=== PATIENT | male | born 1965 | race Caucasian/White ===

== ENCOUNTER 2018-05-09 23:56 | Emergency (ER) | payer BC ==
[2018-05-10 00:06] VITALS: BP 153/97
--- NOTE | 2018-05-10 00:32 | EDM.PDOC ---
ED HPI GENERAL MEDICAL PROBLEM - General Chief Complaint: Lower Extremity Injury/Pain Stated Complaint: LUMP ON LEG Time Seen by Provider: 05/10/18 00:11 Source of Information: Reports: Patient, RN Notes Reviewed - History of Present Illness INITIAL COMMENTS - FREE TEXT/NARRATIVE: 53-year-old male comes in with an area of swelling, discomfort medial aspect left mid thigh. He first noticed that this evening. There is an area of mild redness superficially of the skin. He states that the area of swelling is very mildly tender. Otherwise no discomfort at rest. He did fall a couple of weeks ago but that was backwards. He is not aware of any particular injury to this area. No distal leg discomfort. No chest pain or difficulty breathing. No history of blood clots. No recent surgeries. Left Leg Pain Score (Numeric/FACES): 4 - Related Data Allergies Allergy/AdvReac Type Severity Reaction Status Date / Time sutures Allergy Other Uncoded 05/10/18 00:03 Home Meds: Home Meds . [No Known Home Meds] 09/18/14 [History] Past Medical History - Past Surgical History HEENT Surgical History: Reports: Adenoidectomy, Tonsillectomy Musculoskeletal Surgical History: Reports: Arthroscopic Knee Social & Family History - Tobacco Use Smoking Status *Q: Current Every Day Smoker Years of Tobacco use: 34 Packs/Tins Daily: 1 Review of Systems - Review of Systems Review Of Systems: See Below Constitutional: Denies: Chills, Fever Mouth/Throat: Reports: No Symptoms Respiratory: Denies: Shortness of Breath, Pleuritic Chest Pain Cardiovascular: Denies: Chest Pain GI/Abdominal: Denies: Abdominal Pain, Nausea, Vomiting Musculoskeletal: Reports: Other (Area of swelling and mild discomfort left medial thigh) Skin: Reports: Other (No other areas of skin infection or inflammation) Neurological: Reports: No Symptoms ED EXAM, GENERAL - Physical Exam Exam: See Below General Appearance: Alert, No Apparent Distress Head: Atraumatic. No: Facial Swelling Neck: Supple Respiratory/Chest: No Respiratory Distress Extremities: Non-Tender (Lower leg completely nontender, posterior calf is not swollen warm erythematous or tender.), Other (Area of slight swelling left medial thigh very minimal localized tenderness). No: Joint Swelling Skin Exam: Other (Slight diffuse erythema left medial thigh, no palpable venous cords.) Course - Vital Signs Last Recorded V/S: Last Vital Signs Temp 97.7 F 05/10/18 00:03 Pulse 81 05/10/18 00:03 Resp 18 05/10/18 00:03 BP 153/97 H 05/10/18 00:03 Pulse Ox 97 05/10/18 00:03 - Re-Assessments/Exams Free Text/Narrative Re-Assessment/Exam: 05/10/18 01:03 Etiology of slight swelling and very mild erythematous skin discoloration not clear. This is most compatible mild superficial thrombophlebitis. There is an area of very mild deep or swelling palpable very minimally tender. Did be a pocket of deeper infection although etiology would be unclear. Have discussed warm compresses, anti-inflammatory medication with patient. Will also start him on doxycycline 100 mg twice a day for 1 week. Discharge instructions as documented. Departure - Departure Time of Disposition: 00:30 Disposition: Home, Self-Care 01 Condition: Fair Clinical Impression: Superficial phlebitis - Discharge Information Instructions: Phlebitis, [id number] Referrals: PCP,None [Primary Care Provider] - Forms: ED Department Discharge Additional Instructions: Warm compresses every 2-3 hours while awake for the next few days, Advil or ibuprofen 600 mg 3 times daily with food for inflammation, doxycycline 100 mg twice daily to cover for possible infection. Follow-up clinic and have this rechecked if not getting better over the next 3-4 days. Return to ED if symptoms worsening in any way as discussed.
== END 2018-05-10 00:36 | disposition home or self-care (01) ==
LOC: JD.ED 23:56
DX: I80.12 Phlebitis and thrombophlebitis of left femoral vein (principal); F17.210 Nicotine dependence, cigarettes, uncomplicated; Z91.048 Other nonmedicinal substance allergy status
CPT/HCPCS: 99282; 99283

== ENCOUNTER 2019-04-21 09:49 | Emergency (ER) | payer BC ==
[2019-04-21 09:58] VITALS: BP 151/102; PULSE 80
--- NOTE | 2019-04-21 11:09 | EDM.PDOC ---
ED HPI GENERAL MEDICAL PROBLEM - General Chief Complaint: Upper Extremity Injury/Pain Stated Complaint: R SHOULDER INJURY Time Seen by Provider: 04/21/19 11:02 Source of Information: Reports: Patient History Limitations: Reports: No Limitations - History of Present Illness INITIAL COMMENTS - FREE TEXT/NARRATIVE: 54-year-old male presents the ED with an acute injury to his right shoulder and neck and head yesterday while skiing at [facility]. He was not wearing a helmet and states he lost control and fell hard on his right shoulder. He did hit the side of his head hard and was slightly nauseated afterwards but subsequently feels fine. No blurred vision no nausea no headache and he has full range of motion of his cervical spine. Chief complaint is pain in the right shoulder. States that his ribs aren't that painful. Onset: Sudden Onset Date: 04/20/19 Onset Time: 14:00 Duration: Hour(s): Location: Reports: Head (Closed head injury from coming contact with this note) , Upper Extremity, Right (Right shoulder pain and swelling over the acromioclavicular joint area.) Quality: Reports: Ache ( and ice.), Throbbing Severity: Moderate Improves with: Reports: Rest Worsens with: Reports: Movement Context: Reports: Exercise (Skiing accident.). Denies: Activity (Attempts to move it forward site for flexion or abduction causes increased pain in the shoulder.) Associated Symptoms: Reports: No Other Symptoms Treatments PURCHASING SPECIALIST: Reports: Other (see below) (None.) Left Shoulder Pain Score (Numeric/FACES): 9 - Related Data Allergies Allergy/AdvReac Type Severity Reaction Status Date / Time sutures Allergy Other Uncoded 05/10/18 00:03 Home Meds: Home Meds ISOtretinoin [Myorisan] 40 mg PO WEEKLY 04/21/19 [History] Past Medical History HEENT History: Reports: None Cardiovascular History: Reports: None Respiratory History: Reports: None Gastrointestinal History: Reports: None Genitourinary History: Reports: None Musculoskeletal History: Reports: Other (See Below) (Toward his ACL in his left knee and LCL and repeat had a repaired but the ACL subsequently re-torn but he has not had it repaired.) Neurological History: Reports: None Psychiatric History: Reports: None Endocrine/Metabolic History: Reports: None Hematologic History: Reports: None Immunologic History: Reports: None Oncologic (Cancer) History: Reports: None Dermatologic History: Reports: None - Past Surgical History HEENT Surgical History: Reports: Adenoidectomy, Tonsillectomy Musculoskeletal Surgical History: Reports: Arthroscopic Knee Social & Family History - Tobacco Use Smoking Status *Q: Current Every Day Smoker Years of Tobacco use: 35 Packs/Tins Daily: 1 - Caffeine Use Caffeine Use: Reports: Coffee Caffeine Use Comment: lots - Recreational Drug Use Recreational Drug Use: No - Living Situation & Occupation Living situation: Reports: Occupation: Employed (Self-employed) Review of Systems - Review of Systems Review Of Systems: See Below Constitutional: Reports: No Symptoms Eyes: Reports: No Symptoms Ears: Reports: Other Nose: Reports: No Symptoms Mouth/Throat: Reports: No Symptoms Respiratory: Reports: No Symptoms Cardiovascular: Reports: No Symptoms GI/Abdominal: Reports: No Symptoms Genitourinary: Reports: No Symptoms Musculoskeletal: Reports: Shoulder Pain, Other. Denies: Neck Pain (Left knee pain at times.) Skin: Reports: No Symptoms (Early having right shoulder pain since fall yesterday.) Neurological: Reports: No Symptoms. Denies: Confusion, Dizziness, Headache Psychiatric: Reports: No Symptoms ED EXAM, GENERAL - Physical Exam Exam: See Below Exam Limited By: No Limitations General Appearance: Alert, WD/WN, No Apparent Distress, Other (Temperatures 36.6 heart rate is 80 and sinus respiratory is 20 with O2 sats of 96%. BP slightly elevated at 150 04/19/01 on initial presentation.) Eye Exam: Bilateral Eye: Normal Inspection Ears: Other (Right ear is a little reddened and swollen from coming in contact with the ice and snow but no skin tears are evident. More blunt trauma contusion to the ear pinna.) Throat/Mouth: Normal Inspection, Normal Lips, Normal Oropharynx Head: Atraumatic, Normocephalic Neck: Normal Inspection, Supple, Non-Tender, Full Range of Motion. No: Lymphadenopathy (L), Lymphadenopathy (R) Respiratory/Chest: No Respiratory Distress, Lungs Clear, Normal Breath Sounds, No Accessory Muscle Use, Chest Non-Tender, Other Cardiovascular: Normal Peripheral Pulses (No pain on from compression of lateral ribs.), Regular Rate, Rhythm, No Edema, No Gallop, No Murmur, No Rub Peripheral Pulses: 3+: Radial (L), Radial (R) GI/Abdominal: Normal Bowel Sounds, Soft, Non-Tender, No Organomegaly, No Abnormal Bruit, No Mass, Pelvis Stable Back Exam: Normal Inspection, Full Range of Motion, Other. No: CVA Tenderness ( L), CVA Tenderness (R) Extremities: Other (Paraspinal muscle spasm or rib head subluxation identified. Number the right shoulder shows swelling over the acromioclavicular joint and localized pain to this area as well. Is very limited ability to abduct more than about 15 and cannot forward flex.) Neurological: Alert, Oriented, CN II-XII Intact, Normal Cognition Psychiatric: Normal Affect, Normal Mood Skin Exam: Warm, Dry, Intact, Normal Color, No Rash Course - Vital Signs Last Recorded V/S: Last Vital Signs Temp 36.6 C 04/21/19 09:57 Pulse 80 04/21/19 09:57 Resp 20 04/21/19 09:57 BP 151/102 H 04/21/19 09:57 Pulse Ox 95 04/21/19 09:57 - Orders/Labs/Meds Orders: Active Orders 24 hr Category Date Time Status Shoulder Comp Rt [CR] Stat Exams 04/21/19 10:38 Taken Durable Medical Equipment for Discharge [DME for Oth 04/21/19 11:03 Ordered Discharge] [COMM] Stat - Radiology Interpretation Free Text/Narrative:: 54-year-old male presents the ED with acute injuries to his right shoulder and a minor closed head injury from a skiing accident yesterday in [place]. His range of motion of the cervical spine is full. He has no headache nausea vomiting at this time and no blurred vision. Feels his balance is intact. Chief complaint is pain in his right shoulder and there is swelling over the acromioclavicular joint. I suspect he is his shoulder. Plan x-rays of the shoulder to be done. - Re-Assessments/Exams Free Text/Narrative Re-Assessment/Exam: 04/21/19 11:05: X-rays confirm a second-degree separation of the right shoulder. With pulling down on his arms I could not exacerbate the disc placement. Patient be treated with sling and swath for the next 3 weeks. He prefers not to take any strong pain medication will use Motrin and Aleve as necessary. Use ice pack on the area one half hour out of every 4 hours today and then heat starting tomorrow. Advise follow-up in 3 weeks if range of motion is start starting to return to near normal. Departure - Departure Time of Disposition: 11:03 Disposition: Home, Self-Care 01 Condition: Fair Clinical Impression: Acromioclavicular joint separation, type 2 Qualifiers: Encounter type: initial encounter Laterality: right Qualified Code(s): S43.101A - Unspecified dislocation of right acromioclavicular joint, initial encounter - Discharge Information *PRESCRIPTION DRUG MONITORING PROGRAM REVIEWED*: Not Applicable *COPY OF PRESCRIPTION DRUG MONITORING REPORT IN PATIENT KIM: Not Applicable Instructions: Acromioclavicular Separation Referrals: PCP,None [Primary Care Provider] - Forms: ED Department Discharge Additional Instructions: Evaluation the emergent today in regards to acute injury to your right shoulder neck and head from a skiing accident yesterday afternoon at [facility]. Minor closed head injury with no clinical evidence of a concussion. On trauma to the right shoulder has resulted in swelling around the acromioclavicular joint and x-rays revealed a grade 2 separation of this joint without any bony fractures. Treatment is therefore to mobilize the shoulder for a period of 3 weeks to allow the ligaments to heal. After this beginning range of motion exercises and particular getting on the arm above the head is important to rehabilitation the shoulder. He should heal with no lasting ill effects although you may have a small bump on the top of your shoulder after healing. Motrin 600 mg or Aleve 2 tablets every 8 hours for pain relief. Ice pack to the area one half hour out of every 4 hours today. After that may use heat packs to the area and the TENS unit. Sepsis Event Note - Evaluation Sepsis Screening Result: No Definite Risk - Focused Exam Vital Signs: Vital Signs Temp Pulse Resp BP Pulse Ox 04/21/19 09:57 36.6 C 80 20 151/102 H 95 Date Exam was Performed: 04/21/19 Time Exam was Performed: 11:09 - My Orders Last 24 Hours: My Active Orders 04/21/19 10:38 Shoulder Comp Rt [CR] Stat 04/21/19 11:03 Durable Medical Equipment for Discharge [DME for Discharge] [COMM] Stat - Assessment/Plan Last 24 Hours: My Active Orders 04/21/19 10:38 Shoulder Comp Rt [CR] Stat 04/21/19 11:03 Durable Medical Equipment for Discharge [DME for Discharge] [COMM] Stat
--- NOTE | 2019-04-21 11:52 | CR ---
Right shoulder: Three views of the right shoulder were obtained. Comparison: No prior shoulder exam. Glenohumeral joint appears within normal limits. Distal clavicle is minimally elevated in relation to the acromion process. No acute fracture, dislocation or other bony abnormality is seen. Impression: 1. Slightly elevated distal clavicle in relation to the acromion process. Difficult to completely exclude minimal injury to the acromioclavicular ligament. Please correlate with the patient's symptoms. 2. Right shoulder study is otherwise unremarkable. Diagnostic code #3 This report was dictated in Mountain Standard Time
== END 2019-04-21 11:30 | disposition home or self-care (01) ==
LOC: JD.ED 09:49
DX: S43.101A Unspecified dislocation of right acromioclavicular joint, initial encounter (principal); S00.431A Contusion of right ear, initial encounter; F17.210 Nicotine dependence, cigarettes, uncomplicated; Z91.048 Other nonmedicinal substance allergy status; W19.XXXA Unspecified fall, initial encounter; Y93.23 Activity, snow (alpine) (downhill) skiing, snowboarding, sledding, tobogganing and snow tubing
CPT/HCPCS: 73030-26-RT; 73030-RT; 99283; 99283-25

== ENCOUNTER 2021-02-21 20:35 | Emergency (ER) | payer BC ==
[2021-02-21 20:50] VITALS: BP 132/85; PULSE 87
--- NOTE | 2021-02-21 21:11 | EDM.PDOC ---
ED HPI GENERAL MEDICAL PROBLEM - General Chief Complaint: ENT Problem Stated Complaint: DENTAL PAIN Time Seen by Provider: 02/21/21 20:42 Source of Information: Reports: Patient, RN Notes Reviewed History Limitations: Reports: No Limitations - History of Present Illness INITIAL COMMENTS - FREE TEXT/NARRATIVE: Patient is a 55-year-old male who presents to the ER for the evaluation of his dental complaint. States he has been having issues with his upper right jaw, for some time. Notes that he had an abscess that ruptured a few weeks ago. Everything seemed to be getting a little bit better, but he saw his dentist in consultation this week, and was started on amoxicillin 1500 mg for periodontitis. States he is set to have a root canal at the end of February. Mainly concerned tonight as his tooth started throbbing more, and he just does not think that the amoxicillin is working as it should. No fevers, chills, cough/shortness of breath or any sort of nausea/vomiting/diarrhea. Patient is not having too much pain at this time. Right Upper Tooth/Teeth Pain Score (Numeric/FACES): 2 - Related Data Allergies Allergy/AdvReac Type Severity Reaction Status Date / Time sutures Allergy Other Uncoded 02/21/21 20:50 Home Meds: Home Meds ISOtretinoin [Myorisan] 40 mg PO WEEKLY 04/21/19 [History] Amoxicillin/Clavulanate K [Augmentin 875-125 MG] 1 tab PO BID #14 tablet 02/21/21 [Rx] Chlorhexidine Gluconate [Chlorhexidine Gluconate 0.12% Rinse] 5 ml PO BID #1 bottle 02/21/21 [Rx] Chlorhexidine [Chlorhexidine Flavor] 1 ml ASDIRECTED #1 liquid 02/21/21 [Rx] Past Medical History - Infectious Disease History Infectious Disease History: Reports: Novel Coronavirus (October 2020) - Past Surgical History HEENT Surgical History: Reports: Adenoidectomy, Tonsillectomy Musculoskeletal Surgical History: Reports: Arthroscopic Knee Social & Family History - Tobacco Use Tobacco Use Status *Q: Current Every Day Tobacco User Years of Tobacco use: 32 Packs/Tins Daily: 1 - Caffeine Use Caffeine Use: Reports: Coffee Caffeine Use Comment: lots - Recreational Drug Use Recreational Drug Use: No - Living Situation & Occupation Living situation: Reports: Occupation: Employed (Self-employed) ED ROS ENT - Review of Systems Review Of Systems: Comprehensive ROS is negative, except as noted in HPI. ED EXAM, ENT - Physical Exam Exam: See Below Exam Limited By: No Limitations General Appearance: Alert, WD/WN, No Apparent Distress Mouth/Throat: Normal Inspection, Normal Gums, Normal Lips, Normal Oropharynx, Dental Pain (Multiple caries noted in the patient's right upper jaw. Some are slightly tender, but no abscess is identified that needs to be lanced.) Respiratory/Chest: No Respiratory Distress, Lungs Clear, Normal Breath Sounds, No Accessory Muscle Use, Chest Non-Tender Cardiovascular: Normal Peripheral Pulses, Regular Rate, Rhythm, No Edema Neurological: Alert, Oriented, Normal Cognition, No Motor/Sensory Deficits Psychiatric: Normal Affect, Normal Mood Skin: Warm, Dry, Intact, Normal Color, No Rash Course - Vital Signs Last Recorded V/S: Last Vital Signs Temp 97.3 F 02/21/21 20:44 Pulse 87 02/21/21 20:44 Resp 20 02/21/21 20:44 BP 132/85 02/21/21 20:44 Pulse Ox 96 02/21/21 20:44 - Re-Assessments/Exams Free Text/Narrative Re-Assessment/Exam: 02/21/21 21:14 Patient presents to the ER for evaluation of his ongoing dental complaint. We will go ahead and switch him to Augmentin for amoxicillin. We also given some chlorhexidine mouthwash to see if this helps relieve issues with his periodontitis. Patient verbalized understanding, and is aware that if he is not feeling much better by Wednesday, that he needs to seek clinical management once again. Departure - Departure Time of Disposition: 21:09 Disposition: Home, Self-Care 01 Condition: Good Clinical Impression: Pain, dental - Discharge Information *PRESCRIPTION DRUG MONITORING PROGRAM REVIEWED*: No *COPY OF PRESCRIPTION DRUG MONITORING REPORT IN PATIENT KIM: No Prescriptions: Amoxicillin/Clavulanate K [Augmentin 875-125 MG] 1 tab PO BID #14 tablet Chlorhexidine [Chlorhexidine Flavor] 1 ml ASDIRECTED #1 liquid Chlorhexidine Gluconate [Chlorhexidine Gluconate 0.12% Rinse] 5 ml PO BID #1 bottle Instructions: Dental Pain, [id number] Referrals: Pamela Faye PA-C [Primary Care Provider] - Forms: ED Department Discharge Additional Instructions: You have been evaluated in the ED for your dental pain. You have been provided with a script for Augmentin. 1 tablet 2 times a day for 7 days. Please note this antibiotic can take up to 48 hours to provide coverage. If you do not notice an improvement in the swelling within 3 days time I recommend you seek care for reevaluation for change in antibiotics. This antibiotic can cause diarrhea, recommend that you start a probiotic while taking this medication. You were also given a prescription for chlorhexidine mouthwash, you may use 5 to 10 mL p.o. 2 times a day for ongoing oral management. Please swish this for at least 30 seconds, then spit into the sink. Do not swallow this. This medication was electronically sent to the [place] pharmacy located in the [facility] grocery store. Please stop your current amoxicillin prescription. You may use 500 mg Tylenol, 600 mg ibuprofen every 6 hours as needed for ongoing pain relief, or 1 tablet of Aleve 2 times a day for ongoing management. You may use hot pack/ ice packs to the affected area as tolerated in 15-20 minute intervals. Recommend you follow-up with your dentist on Wednesday, for ongoing management and please let him know that you were seen in the ER for your dental issue and had antibiotics switched. Please return to the ED if your symptoms change or worsen. Sepsis Event Note (ED) - Evaluation Sepsis Screening Result: No Definite Risk - Focused Exam Vital Signs: Vital Signs Temp Pulse Resp BP Pulse Ox 02/21/21 20:44 97.3 F 87 20 132/85 96
== END 2021-02-21 21:22 | disposition home or self-care (01) ==
LOC: JD.ED 20:35
DX: K08.89 Other specified disorders of teeth and supporting structures (principal); Z91.048 Other nonmedicinal substance allergy status; Z72.0 Tobacco use; Z86.16 Personal history of COVID-19
CPT/HCPCS: 99282

== ENCOUNTER 2021-09-03 23:41 | Emergency (ER) | payer BC ==
[2021-09-04] VITALS: BP 164/96; PULSE 78
[2021-09-04] MEDS ORDERED: Morphine 4 MG/ML Syringe IM ONE (00:15)
[2021-09-04] MEDS ORDERED: Cephalexin 500 MG Cap PO ONE (01:45)
[2021-09-04] MEDS ORDERED: Diphtheria,Pertussis(Acell),Tetanus Vaccine 0.5 ML Syringe IM ONE (02:05)
== END 2021-09-04 02:04 | disposition home or self-care (01) ==
LOC: JD.ED 23:41
DX: S92.422A Displaced fracture of distal phalanx of left great toe, initial encounter for closed fracture (principal); E78.00 Pure hypercholesterolemia, unspecified; F17.210 Nicotine dependence, cigarettes, uncomplicated; Z86.16 Personal history of COVID-19; Z90.49 Acquired absence of other specified parts of digestive tract; Z79.899 Other long term (current) drug therapy; Z23 Encounter for immunization; Z91.09 Other allergy status, other than to drugs and biological substances; W20.8XXA Other cause of strike by thrown, projected or falling object, initial encounter
CPT/HCPCS: 73630; 90471; 90715; 96372; 99283; A9270; J2270

== ENCOUNTER → 2023-02-08 | Day surgery (SDC) | payer BC ==
[~2023-02-08] MED LIST: Acetaminophen 325 MG Tab PO SCH; Albuterol 0.083% 2.5 MG/3 ML Neb Soln NEB SCH; Dexmedetomidine 200 MCG/2 ML SDV ONE; EPINEPHrine 1 MG/ML SDV ONE; HYDROmorphone 0.5 MG/0.5 ML Syringe IVPUSH PRN; Ketorolac 30 MG/ML SDV ONE; Lactated Ringers 1,000 ML IV SCH; Midazolam 1 MG/ML 2 ML SDV ONE; Morphine 8 MG, EPINEPHrine 0.3 MG, Cefuroxime 750 MG, Ketorolac 30 MG, Sodium Chloride ... PRN; Ondansetron 4 MG/2 ML SDV IVPUSH PRN; Ondansetron 4 MG/2 ML SDV ONE; Phenylephrine 1% 10 MG/ML SDV ONE; Pregabalin 25 MG Cap PO SCH; Propofol 200 MG/20 ML SDV ONE; Ropivacaine 0.5% 5 MG/ML 30 ML SDV ONE; Sodium Chloride 0.9% 10 ML Syringe FLUSH PRN; Sodium Chloride 0.9% 10 ML Syringe FLUSH SCH; Tranexamic Acid 1,000 MG/10 ML Vial ONE; Vancomycin 1 GM SDV ONE; ceFAZolin 2 GM Vial ONE; fentaNYL 100 MCG/2 ML SDV IVPUSH PRN; fentaNYL 100 MCG/2 ML SDV ONE; oxyCODONE ER 10 MG TAB.ER PO SCH
[2023-02-08 16:21] VITALS: BP 121/77; PULSE 69
== END | disposition home or self-care (01) ==
LOC: JD.SDS 10:00
PROVIDERS: ATTEND Orthopaedic Surgery
DX: M17.11 Unilateral primary osteoarthritis, right knee (principal); E78.00 Pure hypercholesterolemia, unspecified; N40.0 Benign prostatic hyperplasia without lower urinary tract symptoms; F17.210 Nicotine dependence, cigarettes, uncomplicated; Z79.899 Other long term (current) drug therapy; Z88.8 Allergy status to other drugs, medicaments and biological substances; Z91.09 Other allergy status, other than to drugs and biological substances; Z79.01 Long term (current) use of anticoagulants
CPT/HCPCS: 0055T; 27447; 64447; 73560; 97116; 97161; A9270; C1713; C1776; J0171; J0690; J0697; J1885; J2250; J2270; J2371; J2405; J2704; J2795; J3010; J3370; J7030; J7120; 01402; J3490; J7620-GY

== ENCOUNTER 2023-02-13 14:05 | Emergency (ER) | payer BC ==
[2023-02-13 16:02] VITALS: BP 111/84; PULSE 89
== END 2023-02-13 16:10 | disposition home or self-care (01) ==
LOC: JD.ED 14:05
DX: M79.604 Pain in right leg (principal); R05.1 Acute cough; E78.00 Pure hypercholesterolemia, unspecified; Z86.16 Personal history of COVID-19; Z91.048 Other nonmedicinal substance allergy status; Z96.651 Presence of right artificial knee joint; Z79.01 Long term (current) use of anticoagulants; Z79.899 Other long term (current) drug therapy
CPT/HCPCS: 71046; 71046-26; 93971-26-RT; 93971-RT; 99284